=== PATIENT | female | born 1980 | race Caucasian/White ===

== ENCOUNTER 2022-09-04 16:11 | Emergency (ER) | payer OTHER, SELFPAY ==
[2022-09-04 16:26] VITALS: BP 107/59; PULSE 71; RESP 18; TEMP 36.6; O2SAT 100
--- NOTE | 2022-09-04 16:47 | ED.LOWEXIN ---
HPI - Extremity Injury (Lower) General Chief Complaint: Extremity Injury, Lower Stated Complaint: Rt Knee Pain Time Seen by Provider: 09/04/22 16:36 Source: patient Mode of arrival: ambulatory Limitations: no limitations History of Present Illness HPI Narrative: Patient presents today complaining of right posterior knee pain. States her knee has been bothering her intermittently over the past couple of weeks, but she attributed this to her rheumatoid arthritis. Today she was walking down some stairs and felt 3 pops in close succession in the posterior right knee. She felt immediate pain. Denies numbness or tingling in the leg or foot. Denies any traumatic injury or fall. She is pain-free at rest, but this increases with movement or weight-bearing. She took some Tylenol Arthritis prior to the injury today, but no medications since that time. Related Data Allergies Allergy/AdvReac Type Severity Reaction Status Date / Time Penicillins Allergy Unknown Other Verified 09/04/22 16:51 methotrexate AdvReac Mild Hives Verified 09/04/22 16:51 Review of Systems Review of Systems: CONSTITUTIONAL: Denies body aches, fever, chills, or sweats. EYES: Denies visual changes, redness, or discharge. ENT: Denies rhinorrhea, congestion, sore throat, or otalgia. CARDIOVASCULAR: Denies chest pain, palpitations, or edema. RESPIRATORY: Denies cough or dyspnea. GASTROINTESTINAL: Denies abdominal pain, nausea, vomiting, or diarrhea. GENITOURINARY: Denies dysuria or hematuria. SKIN: Denies rash, itching, or wounds. MUSCULOSKELETAL: Denies back pain, or myalgia.+ right knee pain NEUROLOGIC: Denies headache, numbness, tingling, or weakness. PSYCH: Denies depression or anxiety. PMFSH Comments At time of signature, I have reviewed and agree with nursing past medical, surgical, social and family history unless otherwise noted. Please see nursing chart for further information. There is no relevant family history pertinent to the presenting complaint Exam Narrative: GENERAL: Well-appearing, well-nourished, and in no acute distress. HEAD: Normocephalic, atraumatic. EYES: EOMI. No redness or drainage. Conjunctivae normal. ENT: Mucous membranes pink and moist. NECK: Normal AROM. CHEST: No respiratory distress. EXTREMITIES: Right knee: No tenderness to the anterior knee. Tenderness to the entire popliteal fossa. No edema noted. Pain with range of motion in all directions. Distal sensation intact. Capillary refill normal. SKIN: Warm, dry, no rash. Capillary refill normal. Normal skin turgor. NEURO: No focal deficits. Alert and oriented x3. Gait steady. PSYCH: Normal affect. No signs of depression or anxiety. Course Course Emergency Course: Patient has declined x-ray today. Will follow-up with orthopedics. Declines prescription for pain medication. Level of Care: Express Care Visit Vital Signs Vital signs: Vital Signs Temperature 97.8 F 09/04/22 16:26 Pulse Rate 71 09/04/22 16:26 Respiratory Rate 18 09/04/22 16:26 Blood Pressure 107/59 L 09/04/22 16:26 Pulse Oximetry 100 09/04/22 16:26 Oxygen Delivery Room Air 09/04/22 16:26 Temperature 97.8 F 09/04/22 16:26 Pulse Rate 71 09/04/22 16:26 Respiratory Rate 18 09/04/22 16:26 Blood Pressure 107/59 L 09/04/22 16:26 Pulse Oximetry 100 09/04/22 16:26 Oxygen Delivery Room Air 09/04/22 16:26 Reviewed MDM - Extremity Injury (Lower) Differential Diagnosis Differential diagnosis: Likely other (Knee strain, ligamentous injury, meniscus injury) Critical Care Time Critical Care Time Critical Care Time: No Discharge Plan Discharge Clinical Impression: Injury of knee, right Qualifiers: Encounter type: initial encounter Qualified Code(s): S89.91XA - Unspecified injury of right lower leg, initial encounter Patient Disposition: Home, Self-Care Condition: Stable Instructions: Knee Pain (ED) Additional Instructions: Please follow-up with
== END 2022-09-04 16:51 | disposition home or self-care (01) ==
PROVIDERS: Emergency Provider Nurse Practitioner; PCP Internal Medicine
DX: S89.91XA Unspecified injury of right lower leg, initial encounter (principal); M06.9 Rheumatoid arthritis, unspecified; X58.XXXA Exposure to other specified factors, initial encounter
CPT/HCPCS: 99212; G0463